=== PATIENT | male | born 1990 | race Caucasian/White ===

== ENCOUNTER 2016-12-03 14:20 | Emergency (ER) | payer OTHER ==
[~2016-12-03 14:20] MED LIST: ACET325T9 PO; FLEXERIL PO; TRAM50TA PO
[2016-12-03 14:28] VITALS: BP 132/80
[2016-12-03] MEDS ORDERED: MUPI15CR TP (14:41)
[2016-12-03] MEDS ORDERED: MUPIROCIN 2% TOPICAL OINTMENT 22GM TUBE. TP SCH (14:45)
--- NOTE | 2016-12-03 14:48 | PHYS DOC ---
General Chief Complaint: LACERATION/AVULSION Stated Complaint: LACERATION ON HEAD Time Seen by MD: 14:40 Source: patient Exam Limitations: no limitations Problems: History of Present Illness Initial Comments Patient is a 26-year-old male [employer] sent to the emergency department for Worker's Compensation head injury. Patient states immediately prior to arrival he was sweeping floors at the [facility] when he stood up under an open window. He hit the top of his head on the corner of the open window causing some bleeding. He did not fall from the head trauma he denies loss of consciousness or headache but has had some lightheadedness and intermittent blurred vision. Denies nausea or vomiting no global headache or neck pain no new or progressive symptoms throughout his course making his way to the department. Tetanus is up-to-date. Patient denies prior head injury. Occurred: just prior to arrival Severity: mild Location: other Method of Injury: direct blow Loss of Consciousness: no loss of consciousness Associated Symptoms: headaches Allergies: Coded Allergies: No Known Drug Allergies (Unverified , 03/24/15) Past Medical History Medical History: other (noncontributory) Surgical History: noncontributory Social History Smoker: non-smoker Alcohol: none Drugs: none Review of Systems Constitutional: denies chills, denies fever, denies malaise Eyes: denies blurred vision, denies drainage, denies foreign body sensation, denies photophobia Ears, Nose, Mouth, Throat: denies ear discharge, denies nose discharge, denies epistaxis, denies mouth pain Respiratory: denies cough, denies shortness of breath Cardiovascular: denies chest pain, denies palpitations, denies syncope Gastrointestinal: denies abdominal pain, denies nausea, denies vomiting Musculoskeletal: denies back pain, denies joint swelling, denies neck pain Skin: see HPI Psychiatric/Neurological: see HPI Physical Exam General Appearance: WD/WN, no apparent distress Head: other (small abrasion at the top of the head otherwise normocephalic atraumatic negative Thornton sign negative raccoon eyes no evidence of swelling of the face or scalp.) Eyes: bilateral eye normal inspection, bilateral eye PERRL, bilateral eye EOMI Ears, Nose, Throat, Mouth: hearing grossly normal, no evidence of ENT injury ( no ear or nose discharge no fluid behind TMs bilaterally.), no dental injury Neck: non-tender (thank you for), full range of motion, normal alignment Cardiovascular/Respiratory: normal peripheral pulses, no respiratory distress Gastrointestinal: non tender, soft Back: no CVA tenderness, no vertebral tenderness Extremities: non-tender, normal inspection Psychiatric: alert, oriented x 3 Cranial Nerves: normal hearing, normal speech, PERRL Coordination/Gait: normal finger to nose, normal gait Motor/Sensory: no motor deficit, no sensory deficit, no pronator drift Skin: warm/dry (there is an abrasion at the top of the head is approximately 1 cm in length with 0.2 cm with there are no wound edges but rather there is some missing tissue. No active bleeding no palpable bony or soft tissue subcutaneous abnormality. Hemostasis achieved with direct pressure prior to ED arrival.) Emily Coma Score Best Eye Response: (4) open spontaneously Best Verbal Response: (5) oriented Best Motor Response: (6) obeys commands Emily Total: 15 Orders, Labs, Meds I discussed treatment options. There is no opportunity for wound closure with sutures or simba. I discussed tissue adhesive after wound cleaning to provide a water truth barrier to infection. Patient refuses this treatment, he does agree to Bactroban ointment applied twice daily. I discussed activity restrictions and a close PCP follow-up patient expressed agreement and understanding of the treatment plan and agrees to follow-up as directed. Departure Time of Disposition: 14:43 Disposition: 01 HOME, SELF-CARE Diagnosis: concussion, scalp abrasion Condition: GOOD Patient Instructions: Concussion and Brain Injury, [id number], Facial or Scalp Contusion, [id number] Additional Instructions: Please review the patient education materials regarding concussion. Some bleeding is to be expected especially throughout the night's sleep. Use an old pillowcase or cover your current one to prevent staining. Off work through December 05. No work, workouts, or strenuous activity until cleared by your doctor. Ice to painful area 15-20 minutes 4-6 times daily for the first 2 days. Hold your baby aspirin until cleared by your doctor. [id number] Tylenol as needed for discomfort. In general remain in a cool temperature dimly lit environment for optimal symptom control. Prescription: Bactroban ointment apply 3 times daily Follow-up with your doctor on Sunday for recheck and further activity restriction modifications. Follow-up with your employer regarding worker's comp. Return to ED with new or changing symptoms. MARITZA HERNANDEZ DO Dec 03, 2016 14:48
== END 2016-12-03 14:50 | disposition home or self-care (01) ==
LOC: ER 14:20
DX: S06.0X0A Concussion without loss of consciousness, initial encounter (principal); W22.8XXA Striking against or struck by other objects, initial encounter; Y93.89 Activity, other specified; Y99.8 Other external cause status; Y92.89 Other specified places as the place of occurrence of the external cause; S00.01XA Abrasion of scalp, initial encounter
CPT/HCPCS: 99283

== ENCOUNTER 2016-12-10 20:59 | Emergency (ER) | payer OTHER ==
[~2016-12-10] VITALS: Ht 188 cm; Wt 120.2 kg
[~2016-12-10 20:59] MED LIST changes: +MUPI15CR TP
[2016-12-10 21:14] VITALS: BP 149/70
[2016-12-10] MEDS ORDERED: ONDA8TAB12 PO (21:26)
[2016-12-10] MEDS ORDERED: NAPR500T PO (21:26)
--- NOTE | 2016-12-10 21:26 | PHYS DOC ---
Past History Past Medical History: Other Past Surgical History: No Surgical History Alcohol Use: None Drug Use: None Adult General Chief Complaint Chief Complaint: HEADACHE HPI HPI Patient is a 26 year old male who presents with complaint of left scalp pain. He hit his head on the corner of the window at work on 12/03/16. He did not meet criteria for CT imaging at the time (no severe force; no altered LOC). He had an abrasion to the scalp that has healed. Radiating from that abrasion is a patch of scalp that is hypersensitive and painful. No nausea or vomiting. No visual change. He has been seen outpatient and imaging ordered. Review of Systems Review of Systems Eyes: Denies change in visual acuity, redness, or eye pain GI: Denies nausea, vomiting, Integument:healed scalp wound Neurologic: scalp pain; no focal weakness or sensory changes Allergies Allergies Allergies Coded Allergies Type Severity Reaction Last Updated Verified No Known Drug Allergies 03/24/15 No Physical Exam Physical Exam Constitutional: Well developed, well nourished, no acute distress, non-toxic appearance. HENT: Normocephalic, atraumatic, TM clear bilaterally without hemotympanum; bilateral external ears normal, oropharynx moist, no oral exudates, nose normal. Scalp exam: healed abrasion anterior left. Area of the scalp left lateral superior of hyperesthesia.. No skin changes; no rash or vesicles. Eyes: PERRLA, EOMI, conjunctiva normal, no discharge. Neck: Normal range of motion, no tenderness, supple, no stridor. Neurologic: Alert and oriented X 3, normal motor function, normal sensory function, no focal deficits noted. Normal gait. CN II-CII intact Psychologic: Affect normal, judgement normal, mood normal. Course & Med Decision Making Course & Med Decision Making Patient does not meet criteria for CT imaging here. CT is good for acute injuries and at this stage he would benefit from MRI imaging. The risk of radiation exposure does not outweigh any potential benefit as he shows no focal neurologic compromise. The area in question of pain is c/w neuropathy from a scalp peripheral nerve. He would benefit from evaluation by pain management and possible nerve block. Dragon Disclaimer Dragon Disclaimer This chart was dictated in whole or in part using Voice Recognition software in a busy, high-work load, and often noisy Emergency Department environment. It may contain unintended and wholly unrecognized errors or omissions. Departure Departure: Impression: Primary Impression: Scalp pain Disposition: HOME, SELF-CARE Condition: GOOD Referrals: JACIEL HEAD (PCP) Additional Instructions: What you exhibiting is more consistent with scalp pain from the irritation from a peripheral nerve. That is most effectively treated by nerve blocks. Your physician can refer you to a pain specialist. The imaging study that would be best for you at this stage post injury would be a MRI of your brain. CT imaging is very useful for acute injury but the risk of radiation at this stage outweighs any benefit. The MRI will give more useful information at this stage. Scripts Naproxen (NAPROSYN) 500 Mg Tablet 1 TAB PO BID, #30 TAB 1 Refill Prov: ELYSE HOBBS MD 12/10/16 Ondansetron (ZOFRAN ODT) 8 Mg Tab.rapdis 4 MG PO PRN Q6HRS Y for NAUSEA, #10 Prov: ELYSE HOBBS MD 12/10/16 ELYSE HOBBS MD Dec 10, 2016 21:26
== END 2016-12-10 21:51 | disposition home or self-care (01) ==
LOC: ER 20:59
DX: R51 Headache (principal)
CPT/HCPCS: 99281; 99283